=== PATIENT | female | born 1955 | race Caucasian/White ===

== ENCOUNTER 2023-05-20 10:18 | Day surgery (SDC) | payer MEDICARE, MEDICAID ==
[~2023-05-20] VITALS: Ht 157.5 cm; Wt 54.4 kg
[2023-05-20] MEDS ORDERED: fentaNYL citrate 0.05 MG/ML VIAL ONE (14:18)
[2023-05-20] MEDS ORDERED: LIDOCAINE 2% 100 MG/5 ML UJET TP ONE (14:19)
[2023-05-20] MEDS ORDERED: MIDAZOLAM 5 MG/5 ML VIAL ONE (14:19)
[2023-05-20] MEDS ORDERED: fentaNYL citrate 0.05 MG/ML VIAL IVP ONE (15:10)
== END 2023-05-20 16:10 | disposition home or self-care (01) ==
LOC: MDS 10:18 → MMU 11:30 → MDS 16:10
PROVIDERS: ATTEND Internal Medicine Gastroenterology
DX: Z12.11 Encounter for screening for malignant neoplasm of colon (principal); E78.5 Hyperlipidemia, unspecified; M19.90 Unspecified osteoarthritis, unspecified site; I10 Essential (primary) hypertension; Z80.0 Family history of malignant neoplasm of digestive organs; Z79.82 Long term (current) use of aspirin; Z79.899 Other long term (current) drug therapy
CPT/HCPCS: 45378; J2250; J3010